=== PATIENT | male | born 1940 | race Caucasian/White ===

== ENCOUNTER → 2017-01-14 | Day surgery (SDC) | payer MEDICARE ==
[~2017-01-14] MED LIST: BUPIVACAINE/EPINEPHRINE 0.25% 50 ML VIAL ONE; LACTATED RINGER'S 1000 ML INJ 1,000 ML ONE; PROPOFOL 100 MG/10 ML INJ IV ONE; ceFAZolin 2 GM PREMIX 50 ML ONE
--- NOTE | 2017-01-14 14:47 | TN ---
cc: DANNY BO DATE OF SURGERY: 01/14/2017 PREOPERATIVE DIAGNOSIS: Melanoma left lower back, possible local recurrence. POSTOPERATIVE DIAGNOSIS: Melanoma left lower back, possible local recurrence. OPERATIVE PROCEDURE PERFORMED: Wide excision of left lower back melanoma, possible local recurrence with complex closure of wound 4 cm x 13 cm. SURGEON: Danny Bo M.D. ANESTHESIA: TIVA and local anesthetic. ESTIMATED BLOOD LOSS: Less than 10 cc. FINDINGS: Moderate tension with attempted closure requiring undermining of skin and subcutaneous tissue. COMPLICATIONS: None. INDICATIONS FOR THE PROCEDURE: The patient is a 76-year-old male with a history of multiple cutaneous melanomas who developed a pigmented lesion on his left lower back. A biopsy revealed a 1.9 mm Breslow depth or greater melanoma with no ulceration or epidermal component concerning for possible local recurrence. This was within 5 cm or less of his previous invasive melanoma; therefore it is likely a local recurrence. Staging PET scan was negative for disease. OPERATIVE PROCEDURE PERFORMED: Informed consent was obtained. The patient was taken to the operating room and placed in a supine position and placed under conscious sedation. The patient was transferred to the right side down. His back was prepped and draped in a sterile fashion. A time out was performed. Local anesthetic was instilled approximately 30 cc of Marcaine in a regional area around the planned excision. We then marked out the 2 cm in all 360 degrees around the patient's area of recurrent melanoma. We made this an elliptical incision to facilitate closure and this was a 4 cm x 13 cm wound. We excised this with a 15 blade scalpel followed by Bovie electrocautery down to the subcutaneous tissue. The fascial layer was identified and skin and subcutaneous tissue was taken off the fascial layer with the Bovie electrocautery. The specimen was marked with a stitch superior and passed off for permanent processing. At this point in time, the wound would not close whatsoever due to the fact that the patient had had previous excisions in this area and the skin being rather tight. We attempted to undermine this extensively up to 4 cm on either side and at this point, the skin freed greatly and we were able to pull this together with very minimal tension with the undermining. At this point time, we then placed approximately eight interrupted deep dermal #0 Vicryl sutures to close the skin and subcutaneous tissue. We were able to place Monocryl and Dermabond over the skin. The patient was reversed from anesthesia and was taken to the post-anesthesia care unit in stable condition. The patient tolerated the procedure well. There were no apparent complications. All counts were correct. I was present and scrubbed for the entire procedure. MD NICK Last/KORIN /2:08 PM /2:23 PM
== END | disposition home or self-care (01) ==
LOC: ESDC 12:19
PROVIDERS: ATTEND Surgery
DX: C43.59 Malignant melanoma of other part of trunk (principal)
CPT/HCPCS: 00300; 11606; 13101; 13102; 88305; J0690; J3010; J7120

== ENCOUNTER 2017-08-11 09:51 | Day surgery (SDC) | payer MEDICARE ==
[2017-08-11] MEDS ORDERED: LIDOCAINE HCL 1% 20 ML VIAL ONE (11:12)
--- NOTE | 2017-08-11 11:50 | RADRPT ---
EXAM DATE/TIME: 08/11/2017 10:35 [facility] COMPARISON: No previous studies available for comparison. [facility]. INDICATIONS : Enlarged left axilla lymph node. MEDICAL HISTORY : Myocardial infarction. Hypertension. Melanoma. Chronic leukocytic leukemia. SURGICAL HISTORY : Tonsillectomy. Coronary bypass. Melanoma removal. Thoracotomy. Cardiac stent. Right inguinal hernia repair. Vasectomy. Reattach finger tendon. Adenoidectomy. ENCOUNTER: Initial ACUITY: 1 week PAIN SCORE: 0/10 LOCATION: Left arm. ORGAN: Left lymph node axilla. SPECIMENS: Three core specimen(s) submitted for pathologic evaluation. DEVICE: 18 gauge Temno needle Post procedure scanning reveals no hematoma or other complication. The possibility does exist that the tissue obtained will be non-diagnostic. If the sample is non-yvette gnostic a repeat biopsy or surgical biopsy may need to be performed. TECHNIQUE: 1. Ultrasound guidance for needle biopsy. 2. Needle biopsy. Ultrasound was correlated to a prior CT. Multiple mildly enlarged lymph nodes seen within the left ax illa. There is an 8mm lymph node fairly superficial within the left axilla but has loss of the natura l fatty hilar structures. This lymph node was targeted during the biopsy. The risks, benefits and alt ernatives to the procedure were explained and verbal and written consent was obtained. The site was prepped in sterile fashion. Full sterile technique was used, including cap, mask, sterile gloves and gown and a large sterile sheet. Hand hygiene and 2% chlorhexidine and/or betadine/alcohol prep was utilized per protocol for cutaneous antisepsis. The skin and subcutaneous tissues were infiltrated w ith local anesthetic solution. Sterile gel and sterile probe cover were utilized for ultrasound guid ance. With the patient on the ultrasound table, images were obtained. A needle was advanced into the identified target and the number of specimens as above obtained and coronado bmitted for pathologic evaluation. Samples were placed in formalin as well as RPMI fluid. The patient tolerated the procedure well and left the ultrasound suite in stable condition. CONCLUSION: Uncomplicated ultrasound guided core biopsy of left axillary adenopathy. Biju Lugo Jr., MD on August 11, 2017 at 11:46 Board Certified Radiologist. This report was verified electronically.
== END 2017-08-11 11:27 | disposition home or self-care (01) ==
LOC: HRAD 09:51 → HRIP 09:55 → HRAD 11:27
PROVIDERS: ATTEND Surgery
DX: R59.0 Localized enlarged lymph nodes (principal); I10 Essential (primary) hypertension; I25.2 Old myocardial infarction; Z95.5 Presence of coronary angioplasty implant and graft; Z85.820 Personal history of malignant melanoma of skin
CPT/HCPCS: 38505; 76942; 88184; 88185; 88305; 88307; 88341; 88342

== ENCOUNTER 2018-02-03 12:52 | Day surgery (SDC) | payer MEDICARE ==
[2018-02-03 13:09] VITALS: BP 157/80; PULSE 68; RESP 16; TEMP 98.9; O2SAT 98
[2018-02-03] MEDS ORDERED: LIDOCAINE HCL 1% PF 30 ML VIAL ONE (14:07)
--- NOTE | 2018-02-03 14:55 | RADRPT ---
EXAM DATE: 02/03/2018 2:01 PM EDT AGE/SEX: 77 years / Male INDICATIONS: Enlarged lymph node left groin. CLINICAL DATA: This is the patient's subsequent encounter. Patient reports that signs and symptoms h ave been present for > 1 year and indicates a pain score of 0/10. MEDICAL/SURGICAL HISTORY: . Melanoma. Leukemia. Hypertension. Lymphadenopathy. . Wide excis ion skin. CABG. Cardiac stent. Right inguinal hernia. Tonsillectomy. Right shoulder surgery. COMPARISON: No prior exams available for comparison. ORGAN: Left groin. SPECIMEN(S): Two DEVICE(S): 18 gauge Temno needle The possibility does exist that the tissue obtained will be non-diagnostic. If the sample is non-diag nostic, a repeat biopsy or surgical biopsy may need to be performed. TECHNIQUE: 1. Ultrasound guidance for needle biopsy. 2. Needle biopsy. 3. 4. . . The risks, benefits and alternatives to the procedure were explained and verbal and written consent w as obtained. The site was prepped in sterile fashion. Full sterile technique was used, including ca p, mask, sterile gloves and gown and a large sterile sheet. Hand hygiene and 2% chlorhexidine and/or betadine/alcohol prep was utilized per protocol for cutaneous antisepsis. The skin and subcutaneous tissues were infiltrated with local anesthetic solution. Sterile gel and sterile probe cover were u tilized for ultrasound guidance. With the patient on the ultrasound table, images were obtained. A needle was advanced into the identified target and the number of specimens as above obtained and coronado bmitted for pathologic evaluation. The patient tolerated the procedure well and left the ultrasound suite in stable condition. FINDINGS: Ultrasound-guided 18-gauge core biopsies of left inguinal lymphadenopathy was performed as described above. Two excellent core samples were obtained and sent to pathology for further review. CONCLUSION: 1. Successful ultrasound-guided 18-gauge core biopsies of left inguinal lymphadenopathy. Electronically signed by: Papa Woods MD 02/03/2018 2:53 PM EDT
== END 2018-02-03 14:07 | disposition home or self-care (01) ==
LOC: HRAD 12:52 → HRIP 12:58 → HRAD 14:07
PROVIDERS: ATTEND Surgery
DX: C85.15 Unspecified B-cell lymphoma, lymph nodes of inguinal region and lower limb (principal); C95.90 Leukemia, unspecified not having achieved remission; I10 Essential (primary) hypertension; Z95.1 Presence of aortocoronary bypass graft; Z85.820 Personal history of malignant melanoma of skin; Z95.5 Presence of coronary angioplasty implant and graft
CPT/HCPCS: 38505; 76942; 88184; 88185; 88305; 88341; 88342